=== PATIENT | female | born 1955 | race Caucasian/White ===

== ENCOUNTER → 2016-11-15 | Outpatient (CLI) | payer BC ==
--- NOTE | 2016-11-15 12:11 | DI ---
RIGHT FOOT, 11/15/2016 10:21 AM: Clinical History: Right foot joint pain. Previous Exam: None at this facility. 3 weightbearing views are submitted. There is no acute soft tissue, osseous, or joint abnormality. Th e patient is status post bunionectomy. Severe degenerative arthritic changes are noted in the first m etatarsophalangeal joint with bony proliferative spurring at the base of the proximal phalanx of the great toe and the distal head of the first metatarsal bone. The remainder of the examination is nalini l. Reading: Severe degenerative arthritic disease of the first metatarsophalangeal joint. Status post bunionectom y.
== END ==
LOC: MOB RAD 10:22
PROVIDERS: ATTEND Podiatrist Foot & Ankle Surgery
DX: M25.571 Pain in right ankle and joints of right foot (principal); M79.671 Pain in right foot; M65.271 Calcific tendinitis, right ankle and foot; M19.071 Primary osteoarthritis, right ankle and foot; M72.2 Plantar fascial fibromatosis; Z98.890 Other specified postprocedural states
CPT/HCPCS: 73630